=== PATIENT | male | born 1985 | race Caucasian/White ===

== ENCOUNTER 2024-02-08 16:42 | Emergency (ER) | payer SELFPAY ==
[~2024-02-08] VITALS: Ht 172.7 cm; Wt 77.0 kg
[2024-02-08 16:45] VITALS: TEMP 97.7; O2SAT 100
[2024-02-08] MEDS: SODIUM CHLORIDE 0.9% 1,000 ML IV ONE (17:45)
[2024-02-08 18:15] VITALS: BP 95/48; PULSE 82; RESP 16
[2024-02-08] MEDS: KETOROLAC 15MG/ML VIAL IV ONE (18:15)
[2024-02-08 18:39] LABS: HEMOGLOBIN. 9.6 g/dL (14.0-18.0); MEAN CORPUSCULAR HEMOGLOBIN 31.3 pg (28.0-32.0); MEAN CORPUSCULAR HGB CONC 34.3 g/dL (31.0-37.0); MEAN CORPUSCULAR VOLUME 91.4 fL (80.0-94.0); MEAN PLATELET VOLUME 8.5 fl (7.4-10.4); PLATELET 64 x1000/uL (130-400); RED BLOOD CELL COUNT 3.06 mill/uL (4.7-6.1); RED CELL DISTRIBUTION WIDTH 19.5 % (11.6-14.6); WHITE BLOOD COUNT 3.2 x1000/uL (4.5-11.0)
[2024-02-08 18:42] LABS: DIFFERENTIAL COMMENT 1
[2024-02-08 18:47] LABS: CHLORIDE 105 mEq/L (98-107); POTASSIUM 3.3 mEq/L (3.5-5.1); SODIUM 137 mEq/L (136-145)
[2024-02-08 18:48] LABS: CALCIUM 8.7 mg/dL (8.7-10.4); CARBON DIOXIDE 25 mEq/L (21-32)
[2024-02-08 18:53] LABS: ETHANOL BLOOD 69 mg/dL (<10); GLUCOSE 87 mg/dL (70-105); UREA NITROGEN BLOOD 6 mg/dL (9-23)
[2024-02-08 19:12] LABS: ALANINE AMINOTRANSFERASE 39 IU/L (10-49)
[2024-02-08 19:13] LABS: ASPARTATE AMINOTRANSFERASE 119 IU/L (<34); BILIRUBIN DIRECT 1.6 mg/dL (<=3.0); PROTEIN TOTAL 6.1 g/dL (6.0-8.3)
[2024-02-08 21:01] LABS: ANISOCYTOSIS 1+; HYPOCHROMASIA 1+; OVALOCYTES 1+; PLATELET ESTIMATE DECREASED
== END 2024-02-08 19:55 | disposition left against medical advice (07) ==
LOC: ER 16:42
DX: F10.129 Alcohol abuse with intoxication, unspecified (principal); Y90.3 Blood alcohol level of 60-79 mg/100 ml
CPT/HCPCS: 80076; 80048; 80320; 83690; 85025; 36415; 71045; 74176; 93005; 96361; 96374; 99285; J1885; J7030; G0480

== ENCOUNTER 2024-02-08 21:36 | Emergency (ER) | payer SELFPAY ==
[~2024-02-08] VITALS: Ht 170.2 cm; Wt 70.0 kg
[2024-02-08 21:41] VITALS: O2SAT 99
[2024-02-09] MEDS ORDERED: SODIUM CHLORIDE 0.9% 1,000 ML IV ONE
[2024-02-09] MEDS ORDERED: ONDANSETRON HCL 4MG/2ML INJ IV ONE
[2024-02-09] MEDS ORDERED: PANTOPRAZOLE SODIUM 40 MG/VIAL IV ONE
[2024-02-09 00:01] LABS: BASOPHILS % 1.2 % (0.0-2.0); EOSINOPHILS % 1.8 % (0.0-5.0); HEMATOCRIT. 29.3 % (42.0-52.0); HEMOGLOBIN. 9.8 g/dL (14.0-18.0); LYMPHOCYTES % 20.3 % (20.0-50.0); MEAN CORPUSCULAR HEMOGLOBIN 31.2 pg (28.0-32.0); MEAN CORPUSCULAR HGB CONC 33.6 g/dL (31.0-37.0); MEAN CORPUSCULAR VOLUME 92.7 fL (80.0-94.0); MEAN PLATELET VOLUME 9.1 fl (7.4-10.4); MONOCYTES % 13.4 % (2.0-8.0); NEUTROPHILS % 63.3 % (40.0-76.0); PLATELET 72 x1000/uL (130-400); RED BLOOD CELL COUNT 3.16 mill/uL (4.7-6.1); RED CELL DISTRIBUTION WIDTH 20.5 % (11.6-14.6); WHITE BLOOD COUNT 2.9 x1000/uL (4.5-11.0)
[2024-02-09 00:05] LABS: CHLORIDE 104 mEq/L (98-107); POTASSIUM 3.8 mEq/L (3.5-5.1); SODIUM 136 mEq/L (136-145)
[2024-02-09 00:06] LABS: CARBON DIOXIDE 27 mEq/L (21-32)
[2024-02-09 00:11] LABS: CREATININE 1.2 mg/dL (0.6-1.3); ETHANOL BLOOD 20 mg/dL (<10); GLUCOSE 91 mg/dL (70-105); UREA NITROGEN BLOOD 7 mg/dL (9-23)
[2024-02-09 02:15] VITALS: BP 110/86; PULSE 79; RESP 16; TEMP 36.72516; O2SAT 100
== END 2024-02-09 10:37 | disposition home or self-care (01) ==
LOC: ER 21:36 → EDBEDREQ 02-09 00:36 → CANBEDREQ 02-09 09:54 → ER 02-09 10:37
DX: K74.60 Unspecified cirrhosis of liver (principal); F10.229 Alcohol dependence with intoxication, unspecified; Y90.0 Blood alcohol level of less than 20 mg/100 ml
CPT/HCPCS: 80048; 80320; 83690; 85025; 36415; 99283; J2405; J2470; J7030; G0480